=== PATIENT | male | born 1990 | race Caucasian/White ===

== ENCOUNTER 2018-07-01 09:56 | Emergency (ER) | payer SELFPAY ==
[~2018-07-01] VITALS: Ht 172.7 cm; Wt 90.9 kg
[2018-07-01 10:11] VITALS: Ht 172.7 cm; Wt 90.9 kg
[2018-07-01] MEDS ORDERED: SOD CHLORIDE 0.9% 1,000 ML IV STA (10:32)
[2018-07-01] MEDS ORDERED: MECLIZINE 12.5 MG TAB PO ONE (11:00)
[2018-07-01] MEDS ORDERED: LORAZEPAM 2 MG INJ IV ONE (11:00)
[2018-07-01] MEDS ORDERED: MECL-77 PO (11:38)
--- NOTE | 2018-07-01 11:41 | ERD ---
ER Documentation Chief Complaint Chief Complaint DIZZINESS HPI 28-year-old male who presents to the emergency room with less than 24 hours of symptoms. He describes room spinning sensation that is sudden in onset worse with head movement from side to side. This is associated with nonbloody nonbilious emesis. He denies any headache, motor weakness, ataxia. No other complaints. The patient has slight pallor but denies any hematemesis or melena. ROS All systems reviewed and are negative except as per history of present illness. Medications Home Meds Active Scripts Meclizine Hcl* (Meclizine Hcl*) 25 Mg Tablet, 25 MG PO Q8H PRN for DIZZINESS, #20 TAB Prov:CAMILLE ZAMORA MD 07/01/18 Allergies Allergies: Coded Allergies: No Known Allergy (Unverified , 07/01/18) FmHx Family History: No diabetes Physical Exam Vitals Vital Signs Date Temp Pulse Resp B/P (MAP) Pulse Ox O2 O2 Flow FiO2 Time Delivery Rate 07/01/18 98.2 97 20 139/94 99 10:11 (109) Physical Exam General: Well developed, well nourished, no acute distress Head: Normocephalic, atraumatic. Eyes: Pupils equally reactive, EOM intact ENT: Moist mucous membranes Neck: Supple, no lymphadenopathy Respiratory: Lungs clear bilaterally, no distress Cardiovascular: RRR, no murmurs, rubs, or gallops Abdominal: Soft, non-tender, non-distended, no peritoneal signs : Deferred MSK: No edema, no unilateral swelling, 5/5 strength Neurologic: Alert and oriented, moving all extremities, normal speech, no focal weakness, no cerebellar signs, reproducible horizontal nystagmus with head movements. Steady gait. Skin: No rash Psych: Normal mood Result Diagram: 07/01/18 1101 Results 24 hrs Laboratory Tests Test 07/01/18 11:01 White Blood Count 4.5 10^3/ul Red Blood Count 5.20 10^6/ul Hemoglobin 14.5 g/dl Hematocrit 44.5 % Mean Corpuscular Volume 85.6 fl Mean Corpuscular Hemoglobin 27.9 pg Mean Corpuscular Hemoglobin Concent 32.6 g/dl Red Cell Distribution Width 12.2 % Platelet Count 396 10^3/UL Mean Platelet Volume 9.9 fl Immature Granulocytes % 0.900 % Neutrophils % 48.8 % Lymphocytes % 35.4 % Monocytes % 10.4 % Eosinophils % 2.7 % Basophils % 1.8 % Nucleated Red Blood Cells % 0.0 /100WBC Immature Granulocytes # 0.040 10^3/ul Neutrophils # 2.2 10^3/ul Lymphocytes # 1.6 10^3/ul Monocytes # 0.5 10^3/ul Eosinophils # 0.1 10^3/ul Basophils # 0.1 10^3/ul Nucleated Red Blood Cells # 0.0 10^3/ul Current Medications Medications Dose Sig/Gerard Start Time Status Last (Trade) Ordered Route PRN Stop Time Admin Dose Reason Admin Sodium 1,000 ml @ Q1H STAT 07/01/18 DC 07/01/18 Chloride 1,000 mls/hr IV 10:32 11:14 07/01/18 11:31 Lorazepam 0.5 mg ONCE ONCE 07/01/18 DC 07/01/18 (Ativan) IV 11:00 11:13 07/01/18 11:01 Meclizine 25 mg ONCE ONCE 07/01/18 DC 07/01/18 HCl PO 11:00 11:13 (Antivert) 07/01/18 11:01 Procedures/MDM LAB INTERPRETATION: No anemia MEDICAL DECISION MAKING: The patient has very reproducible vertigo with horizontal nystagmus. No red flags or concerning signs or symptoms concerning for central vertigo. Given the patient's age I do not believe CT imaging of the brain would be appropriate. No indication that the patient has increased intracranial pressure. The patient has slight pallor but family states this is likely consistent with baseline. CBC to rule out anemia ER COURSE: * Patient was given Ativan meclizine and IV fluids a traumatic impairment of his symptoms. * Laboratory testing shows no evidence of anemia * At this point the patient symptoms are improved he can be safely discharged with close return precautions. CONSULTATION: [None] DISPOSITION PLAN: The patient does not have an identifiable emergent medical condition that warrants inpatient hospitalization at this time. The patient is deemed safe for discharge with outpatient follow-up. We discussed follow up with the patient's primary care doctor within 24 to 48 hours as needed. We also discussed return to the emergency room for worsening symptoms or worsening condition. Outpatient referral: [None required] Discharge Medications: Meclizine Departure Diagnosis: Primary Impression: Benign positional vertigo Laterality: unspecified laterality Qualified Codes: H81.10 - Benign paroxysmal vertigo, unspecified ear Condition: Stable Patient Instructions: Benign Positional Vertigo Referrals: [facility] YOU HAVE RECEIVED A MEDICAL SCREENING EXAM AND THE RESULTS INDICATE THAT YOU DO NOT HAVE A CONDITION THAT REQUIRES URGENT TREATMENT IN THE EMERGENCY DEPARTMENT. FURTHER EVALUATION AND TREATMENT OF YOUR CONDITION CAN WAIT UNTIL YOU ARE SEEN IN YOUR DOCTORS OFFICE WITHIN THE NEXT 1-2 DAYS. IT IS YOUR RESPONSIBILITY TO MAKE AN APPOINTMENT FOR FOLOW-UP CARE. IF YOU HAVE A PRIMARY DOCTOR --you should call your primary doctor and schedule an appointment IF YOU DO NOT HAVE A PRIMARY DOCTOR YOU CAN CALL OUR PHYSICIAN REFERRAL HOTLINE AT IF YOU CAN NOT AFFORD TO SEE A PHYSICIAN YOU CAN CHOSE FROM THE FOLLOWING [facility] [address] [facility] [facility] [address] [facility] [facility] [address] [facility] [address] [facility]. [facility] [address] [facility]. [facility] [address] [facility]. [facility] YOU HAVE RECEIVED A MEDICAL SCREENING EXAM AND THE RESULTS INDICATE THAT YOU DO NOT HAVE A CONDITION THAT REQUIRES URGENT TREATMENT IN THE EMERGENCY DEPARTMENT. FURTHER EVALUATION AND TREATMENT OF YOUR CONDITION CAN WAIT UNTIL YOU ARE SEEN IN YOUR DOCTORS OFFICE WITHIN THE NEXT 1-2 DAYS. IT IS YOUR RESPONSIBILITY TO MAKE AN APPOINTMENT FOR FOLOW-UP CARE. IF YOU HAVE A PRIMARY DOCTOR --you should call your primary doctor and schedule and appointment IF YOU DO NOT HAVE A PRIMARY DOCTOR YOU CAN CALL OUR PHYSICIAN REFERRAL HOTLINE AT . IF YOU CAN NOT AFFORD TO SEE A PHYSICIAN YOU CAN CHOSE FROM THE FOLLOWING [facility], [facility] INSTITUTIONS: [facility] [address] [place] [address] [facility] [address] [place] [address] [facility] [address] [place] [address] Additional Instructions: Call your primary care doctor TOMORROW for an appointment during the next 1 WEEK.Tell the personal secretary that you were referred from this facility.See the doctor sooner or return here if your condition worsens before your appointment time. CAMILLE ZAMORA MD Jul 01, 2018 11:41
[2018-07-01 13:30] VITALS: BP 111/80; PULSE 97; RESP 17
== END 2018-07-01 13:47 | disposition home or self-care (01) ==
LOC: E/R 09:56
DX: H81.10 Benign paroxysmal vertigo, unspecified ear (principal)
CPT/HCPCS: 36415; 85025; 96374; 99284; J2060; J7030